=== PATIENT | female | born 1960 | race African-American/Black ===

== ENCOUNTER 2020-02-29 13:38 | Emergency (ER) | payer SELFPAY ==
[~2020-02-29] VITALS: Ht 154.9 cm; Wt 75.0 kg
[2020-02-29 13:43] VITALS: BP 134/70
== END 2020-02-29 17:49 | disposition home or self-care (01) ==
LOC: ER 13:38
DX: J18.9 Pneumonia, unspecified organism (principal); I10 Essential (primary) hypertension; Z87.09 Personal history of other diseases of the respiratory system
CPT/HCPCS: 71045; 99283